=== PATIENT | female | born 1985 | race Caucasian/White ===

== ENCOUNTER 2019-08-02 17:07 | Emergency (ER) | payer MEDICARE, OTHER ==
[~2019-08-02] VITALS: Ht 157.5 cm; Wt 58.3 kg
[~2019-08-02 17:07] MED LIST: BEN50 PO; DOCU-159 PO; FER325 PO; FOLI-49 PO; HYDR-762 PO; HYDR500C3 PO; ONDA4TAB8 PO
[2019-08-02 17:13] VITALS: BP 107/68; PULSE 101; RESP 18; Ht 157.5 cm; Wt 58.3 kg
== END 2019-08-02 21:51 | disposition left against medical advice (07) ==
LOC: E/R 17:07
DX: G89.29 Other chronic pain (principal); R40.2142 Coma scale, eyes open, spontaneous, at arrival to emergency department; R40.2252 Coma scale, best verbal response, oriented, at arrival to emergency department; R40.2362 Coma scale, best motor response, obeys commands, at arrival to emergency department; Z72.89 Other problems related to lifestyle
CPT/HCPCS: 99282